=== PATIENT | male | born 1985 | race Caucasian/White ===

== ENCOUNTER 2025-01-06 07:42 | Day surgery (SDC) | payer BC ==
[~2025-01-06 07:42] MED LIST: EPINEPHrine 0.3 MG in Ophthalmic Irrigation Solution 500 ML IRR SCH
[2025-01-06] MEDS ORDERED: Famotidine/PF 20 mg/2ml Vial ONE (08:43)
[2025-01-06] MEDS ORDERED: Cyclopentolate 1% Opth Drop 2 ML BOT ONE (09:07)
[2025-01-06] MEDS ORDERED: PROPOFOL 20 ML ONE (11:18)
[2025-01-06] MEDS ORDERED: CEFAZOLIN 1 GM VIAL ONE (11:31)
[2025-01-06] MEDS ORDERED: Lidocaine 4% PF 5 ML AMP ONE (11:31)
[2025-01-06] MEDS ORDERED: Maxitrol 0.1% Opth Oint 3.5 GM TUBE ONE (11:31)
[2025-01-06] MEDS ORDERED: Lidocaine 1% PF 5 ML VIAL ONE (11:31)
[2025-01-06] MEDS ORDERED: Ondansetron PF 4 MG/2 ML Vial ONE (11:41)
== END 2025-01-06 15:10 | disposition home or self-care (01) ==
LOC: SDC 07:42
PROVIDERS: ATTEND Ophthalmology Retina Specialist
PROC: 08U03JZ Supplement of Right Eye with Synthetic Substitute, Percutaneous Approach (ICD-10-PCS; principal; 2025-01-06)
DX: H33.011 Retinal detachment with single break, right eye (principal)
CPT/HCPCS: C1776; C1889; J0166; J0690; J2704; J3301; J3490